=== PATIENT | male | born 1990 ===

== ENCOUNTER 2018-10-16 04:03 | Emergency (ER) | payer OTHER ==
[2018-10-16 04:04] VITALS: BMI 23.5
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
[2018-10-16 05:32] VITALS: BP 124/80; PULSE 78; RESP 16; TEMP 98.1; O2SAT 100
--- NOTE | 2018-10-16 17:28 | CARD ---
APPROVED REPORT Date of service: 10/16/2018 EKG Measurement Heart [id number] <Conclusion> Sinus rhythm with 1st degree AV block Rightward axis Incomplete right bundle branch block Borderline ECG
== END 2018-10-16 05:23 | disposition home or self-care (01) ==
LOC: H.ER 04:03
DX: M54.2 Cervicalgia (principal); M54.9 Dorsalgia, unspecified; V43.52XA Car driver injured in collision with other type car in traffic accident, initial encounter
CPT/HCPCS: 93005; 96372; 99283; J1885